=== PATIENT | male | born 1990 | race Two or more races ===

== ENCOUNTER 2021-03-21 14:59 | Emergency (ER) | payer OTHER ==
[~2021-03-21] VITALS: Ht 188 cm; Wt 145.1 kg
--- NOTE | 2021-03-21 15:15 | NUR ---
THE PATIENT BIBS FOR C/O FELT LIGHTHEADED WHILE AT PMD OFFICE, STATES B/P WAS OVER 200 SYSTOLIC. C/O LOWER BACK AND RIGHT LEG PAIN 9/10. IN ROOM AIR AND DENIES SOB. RESPIRATION REGULAR AND UNLABORED. ATTACHED ON A MONITOR. WILL CONTINUE TO MONITOR THE PATIENT.
--- NOTE | 2021-03-21 15:16 | NUR ---
DR MOSES AT BEDSIDE FOR EVAL.
[2021-03-21] MEDS ORDERED: KETOROLAC TROMETHAMINE INJ 30 MG/ML VIAL IV ONE (15:30)
--- NOTE | 2021-03-21 15:34 | NUR ---
BLOOD SPECIMEN COLLECTED AND SENT TO THE LAB
[2021-03-21] MEDS ORDERED: KETOROLAC TROMETHAMINE 15 MG/ML VIAL ONE (15:36)
[2021-03-21 15:43] LABS: BASOPHILS % (AUTO) 0.5 % (0.0-2.0); EOSINOPHILS % (AUTO) 1.6 % (0.0-6.0); HEMATOCRIT 44 % (39-51); LYMPHOCYTES # (AUTO) 2.1 /CMM (0.8-4.8); LYMPHOCYTES % (AUTO) 37.3 % (20.0-44.0); MEAN CORPUSCULAR HGB CONC 34 g/dl (31.0-36.0); MEAN CORPUSCULAR VOLUME 89 fL (80-96); MONOCYTES # (AUTO) 0.3 /CMM (0.1-1.30); MONOCYTES % (AUTO) 5.9 % (2.0-12.0); NEUTROPHILS # (AUTO) 3.1 /CMM (1.8-8.9); NEUTROPHILS % (AUTO) 54.7 % (43.0-81.0); PLATELET COUNT (AUTO) 239 /CMM (150-450); RED BLOOD CELL COUNT(AUTO) 4.97 MIL/uL (4.5-6.0); WHITE BLOOD COUNT (AUTO) 5.6 K/uL (4.3-11.0)
[2021-03-21 15:49] LABS: CALCIUM, SERUM 8.7 mg/dL (8.5-10.1); CREATININE 1.1 mg/dL (0.6-1.3); POTASSIUM 4.1 mmol/L (3.5-5.1)
[2021-03-21] MEDS ORDERED: AMLO5TAB4 PO (16:08)
[2021-03-21 16:24] VITALS: BP 151/96
--- NOTE | 2021-03-21 16:24 | NUR ---
The patient is alert and oriented x4. Patient discharged to home in stable condition. Written and verbal after care instructions given. Patient verbalizes understanding of instruction.
== END 2021-03-21 16:25 | disposition home or self-care (01) ==
LOC: ER 15:04
DX: M54.5 Low back pain (principal); G89.29 Other chronic pain; I10 Essential (primary) hypertension; E66.9 Obesity, unspecified; Z68.41 Body mass index [BMI] 40.0-44.9, adult; Z98.890 Other specified postprocedural states; Z88.8 Allergy status to other drugs, medicaments and biological substances; Z79.899 Other long term (current) drug therapy
CPT/HCPCS: 36415; 80048; 85025; 93005; 96374; 99284; J1885